=== PATIENT | male | born 1965 | race Caucasian/White ===

== ENCOUNTER 2016-05-12 10:43 | Inpatient (IN) | payer BC ==
[2016-05-06 16:38] LABS: BASOPHILS 0.3 %; BASOPHILS ABSOLUTE 0.01 10/3/uL (0.0-0.16); EOSINOPHILS 4.1 %; EOSINOPHILS ABSOLUTE 0.16 10/3/uL (0.0-0.53); HEMATOCRIT 40.6 % (40.0-51.0); HEMOGLOBIN 14.2 g/dL (13.6-17.8); IMMATURE GRANULOCYTES 0.3 %; IMMATURE GRANULOCYTES ABSOLUTE 0.01 10/3/uL (0.0-0.11); LYMPHOCYTES 17.9 %; MEAN CORPUSCULAR HEMOGLOB 33.3 pg (26.0-34.0); MEAN PLATELET VOLUME 9.8 fL (9.2-13.0); MONOCYTES 7.2 %; MONOCYTES ABSOLUTE 0.28 10/3/uL (0.21-1.20); NEUTROPHILS 70.2 %; NEUTROPHILS ABSOLUTE 2.75 10/3/uL (2.02-8.40); PLATELET COUNT 202 10/3/uL (150-400); RBC DISTRIBUTION WIDTH 13.7 % (12.0-16.0); RED CELL COUNT 4.27 10/6/uL (4.7-6.1); WHITE BLOOD CELLS 3.9 10/3/uL (4.5-10.5)
[2016-05-06 16:39] LABS: MANUAL DIFF NO %; MEAN CORPUSCULAR VOLUME 95.1 fL (80-100)
[2016-05-06 16:57] LABS: BUN (BLOOD UREA NITROGEN) 7 MG/DL (6-23); CALCIUM, SERUM 8.1 MG/DL (8.5-10.4); CHLORIDE, SERUM 106 MMOL/L (96-112); CO2 (CARBON DIOXIDE) 29 MMOL/L (24-34); CREATININE 0.77 MG/DL (0.70-1.30); GFR AFRICAN AMERICAN 124 ML/MIN (>=60); GFR NON AFRICAN AMERICAN 107 ML/MIN (>=60); GLUCOSE, SERUM 66 MG/DL (60-99); POTASSIUM, SERUM 3.9 MMOL/L (3.5-5.3); SODIUM, SERUM 143 MMOL/L (135-148)
--- NOTE | ~2016-05-12 | OP ---
Record Of Operation [facility] [address] [place]. [address] NAME: RANJITH KATHLEEN : 69 STATUS : ADM IN PAT#: [id number] AGE: 51 ADM/REG DATE : 05/12/16 MR#: [id number] REPORT SERV DATE: 05/13/16 DICTATED BY: FAY ANTONIO DATE: 05/12/16 REPORT STATUS : Draft TRANSCRIBED BY: MODEnrique DATE: 05/12/16 DATE OF PROCEDURE: 05/12/2016 PREPROCEDURE DIAGNOSIS: T3, N1, M0 adenocarcinoma of the rectum. POSTPROCEDURE DIAGNOSIS: T3, N1, M0 adenocarcinoma of the rectum. PROCEDURE: Robotic ultra-low anterior resection with hand-sewn anastomosis and ileostomy. ASSISTANTS: Mendez. DESCRIPTION OF PROCEDURE: The patient was taken to the operating room, induced under general anesthesia, placed into lithotomy. Proctoscopy was performed. The patient had stenosis of the tumor or scar was palpable 2 cm above the dentate line. For this reason, the decision was to perform a hand-sewn anastomosis. After prepping and draping, a Salinas catheter was placed. We began with a 2 cm incision, 2 cm to the right of the umbilicus using the scalpel blade. This was carried down to the level of the fascia. Anterior fascia was opened between two Kochers. The muscle fibers were spread and the posterior fascia grasped between two hemostats. They were open between the two Pickett. Then, the U-stitches 2-0 Vicryl UR6 were placed on either side and a balloon trocar was placed in through the abdomen. First the balloon was inflated. It was tightened down to size and then the abdomen was insufflated on high flow. In the right lower quadrant, 1 cm incision was made beginning first with a sharp 8 mm trocar and then converting to a 12 mm blunt trocar with an 8 inside an 8 was placed in the left lower quadrant and the left upper quadrant and then, a bladed 5 non-robotic trocar was placed in the right upper quadrant. Once these were in place then, the robot was docked. Beginning with taking the vascular pedicle, the window was made in the mesentery from the sacral promontory to the origin of the MARLON. This was dissected laterally. The ureter was easily identified. Then, the MARLON was taken at the origin including the IMV in order to allow the entire colon to be able to reach the anus. Once this was accomplished, then dissection began using cautery at the level of the sigmoid colon, which was taken down all the way up the white line of Toldt to the splenic flexure which was taken with cautery. Once this was accomplished, then total mesorectal excision was performed. Circumferentially, this was somewhat difficult due to the deep narrow pelvis of the nail. This was performed circumferentially and then a lap pad was placed posterior to the dissection above the levator muscles and posterior to the anal canal. At this point, the abdomen was desufflated. Dr. Cunha and Fabiano went below beginning with a lighted Hill Kulkarni retractor after pudendal nerve block was placed with a total of 10 mL of a 1:1 mixture of 1% lidocaine and 0.25% Sensorcaine injected locally and bilaterally and then, six blue hooks were placed circumferentially using a [place] using a lighted Hill-Kulkarni retractor dilating with a small than medium. The mucosa was released from the dentate line circumferentially. An Allis was placed on the edge as dissection of the mesorectum was performed circumferentially encountering the Ray-Leon which was brought out through the perineal wound, then circumferentially until the entire rectum plus mesorectum could be brought out the anus. Once this was accomplished up to the level of the MARLON, the mesentery was transected, taken in a clamp, cut in tie technique with 3-0 Vicryl ties. The descending colon was transected with cautery. The specimen was opened before sending it to pathology Record Of [address] [address] NAME: RANJITH KATHLEEN : 69 STATUS : ADM IN PAT#: [id number] AGE: 51 ADM/REG DATE : 05/12/16 MR#: [id number] REPORT SERV DATE: 05/13/16 DICTATED BY: FAY ANTONIO DATE: 05/12/16 REPORT STATUS : Draft TRANSCRIBED BY: MODL DATE: 05/12/16 to confirm there was indeed a 2 cm margin from the tumor and then the anastomosis was created by doing interrupted stitches in four quadrants with 2-0 Vicryl suture and then two interrupted in between each quadrant. Once this was accomplished, then the [place] was removed. The patient was cleaned and dried. The abdomen was re-insufflated using irrigation and suction. The pelvis was irrigated. There was no further bleeding. Then, the cecum with the appendix was identified following the terminal ilium approximately 14 cm until it reached the prior marked site on the abdomen was clamped with a cushion bowel clamp and dissection began making a circular incision using cautery over the prior marked ileostomy site. This was carried down to the level of the fascia. Anterior fascia was opened between two Kochers, posterior fascia opened between two hemostats. The bowel was delivered of the laparoscopic instrument to the wound. Two Whit's placed proximal and single Allis distal and it was delivered up through the wound after the laparoscopic instrument was removed. The abdomen was reinsufflated to visualize orientation and followed the distal limb to the cecum. At this point, all trocars were removed. The window was made in the mesentery of the small bowel and an ileostomy liz was placed to hold it in place. The camera, trocar, and the 12-mm trocar, the fascia was closed with 2-0 Vicryl UR6. All wounds were irrigated. The skin was closed with 4-0 Monocryl subcu followed by benzoin, Steri-Strips, and Band-Aids. Blue towels were placed over the Band-Aids as the ileostomy was matured making a curvilinear incision on the anti-mesenteric border, then interrupted 3- 0 Vicryl sutures in four quadrants taking care to Lela the ileostomy and then interrupted in between each quadrant, full-thickness bowel, and dermis. These were tied. The appliance was cut to size and applied. He tolerated the procedure well. I am going to apply a modifier 22, not only with this robotic and included mobilization of the splenic flexure. It included a hand-sewn anastomosis. It took a total of six hours. KIMI Fay Antonio M.D. / [id number] CC: Justin Barrientos M.D. Davey B. Daniel, M.D. Vijaykurmar Patel, M.D.
--- NOTE | ~2016-05-12 | HP ---
History And Physical [facility] [address] [place]. [address] NAME: RANJITH KATHLEEN RENEE : 69 STATUS : ADM IN [facility]#: [id number] AGE: 51 ADM/REG DATE : 05/12/16 MR#: [id number] REPORT SERV DATE: 05/13/16 DICTATED BY: FAY ANTONIO DATE: 05/12/16 REPORT STATUS : Draft TRANSCRIBED BY: MODEnrique DATE: 05/12/16 DATE OF ADMISSION: 05/12/2016 REASON FOR ADMISSION: Ultra-low anterior resection with hand-sewn anastomosis and ileostomy for rectal cancer. PAST MEDICAL HISTORY: T3 N1 M0 adenocarcinoma of the rectum. PAST SURGICAL HISTORY: Cardiac ablation and right hip replacement. SOCIAL HISTORY: Does not smoke or drink. His is a nurse here at [employer]. FAMILY HISTORY: COPD, diabetes, and myocardial infarction. ALLERGIES: NONE. MEDICATIONS: None. REVIEW OF SYSTEMS: As stated in the HPI, otherwise negative. PHYSICAL EXAMINATION: VITAL SIGNS: 66, 112/62, and BMI 25. GENERAL: Alert, thin, white male, no acute distress. HEENT: Normocephalic, atraumatic. EOMI. PERRLA. Oropharynx is clear. NECK: Supple. No lymphadenopathy. Clear to auscultation bilaterally. HEART: Regular rate and rhythm. ABDOMEN: Flat. RECTAL: Digital rectal exam, I am able to palpate the lesion to the left of the posterior midline. EXTREMITIES: Moves all extremities well. NEUROLOGIC: Cranial nerves II through XII intact. DERMATOLOGIC: No rashes. ASSESSMENT AND PLAN: A 51-year-old male with a T3 N1 M0 adenocarcinoma of the rectum, status post neoadjuvant therapy, and ready now for low anterior resection. I have discussed risks, benefits, and alternatives. He understands and is willing to proceed. CHANG/CADE Fay Antonio M.D. / [id number] History And Physical [address] [place] [address] NAME: FRANNIEROCKZAHIRA DURAN : 69 STATUS : ADM IN PAT#: [id number] AGE: 51 ADM/REG DATE : 05/12/16 MR#: [id number] REPORT SERV DATE: 05/13/16 DICTATED BY: FAY ANTONIO DATE: 05/12/16 REPORT STATUS : Draft TRANSCRIBED BY: MODL DATE: 05/12/16 CC: Fay Antonio M.D.
--- NOTE | ~2016-05-12 | DS ---
Discharge Summary [facility] [address] [place]. [address] NAME: RANJITH KATHLEEN : 69 STATUS : DIS IN PAT#: [id number] AGE: 51 ADM/REG DATE : 05/12/16 MR#: [id number] REPORT SERV DATE: 05/22/16 DICTATED BY: FAY ANTONIO DATE: 05/22/16 REPORT STATUS : Draft TRANSCRIBED BY: CADE DATE: 05/22/16 Data Collection from hospitalization DISCHARGE DIAGNOSIS: T3 N1 M0 adenocarcinoma of the rectum. CONSULTATIONS: None. PROCEDURES PERFORMED: Robotic ultra-low anterior resection with hand-sewn anastomosis and ileostomy on 05/12/2016. PATHOLOGY: Rectum, low anterior resection - focal residual adenocarcinoma, status post neoadjuvant therapy site - rectum, size (maximal tumor dimension) - largest microscopic focus measures 3 mm. Histologic grade - moderately differentiated. Local extent - T3 tumor invades through the muscularis propria. Pericolorectal tissues, lymphatic (small vessel) invasion - not identified. Venous (large vessel) invasion - not identified. Status of margins - negative. Residual tumor is 2 cm from the distal margins. Lymph nodes - 0/14 nodes are involved (0/14). Treatment effect - moderate response (grade 1 minimal residual cancer). Tumor deposits - not identified. Perineural invasion - not identified. Histologic features of microsatellite instability - not identified. Immunohistochemistry for mismatch repair (MMR) protein - perforated on previous biopsy. MSH2/MSH6/MLH1/TMS2 - normal expression (positive nuclear staining). CDX-2 immunostain - not applicable - chemotherapy already received. Macroscopic intactness of mesorectum - complete. Other findings - none. Pathological stage - yPT3, yTN0. MEDICATIONS: Aspirin 325 mg every six hours as needed and Piggott 7.5/325 one to two tablets every four to six hours as needed. CONDITION AT DISCHARGE: Stable. DISPOSITION: The patient was discharged home to be followed by home health care on a soft diet with activities as instructed. He would follow up with me two weeks following discharge. HOSPITAL COURSE: This is a 51-year-old man who has T3 N1 M0 adenocarcinoma of the rectum. Treatment options were discussed and it was elected to proceed with surgical intervention. He was admitted to the hospital at this time for further evaluation and treatment. Upon admission, he was taken to the operating room where he underwent the above-mentioned procedure. He tolerated this well, and there were no complications. On postop day #1, Salinas catheter was replaced due to pelvic dissection. His incisions were clean, dry, and intact. We encouraged him to ambulate. On 05/14/2016, the Salinas catheter was removed. He had no urinary retention. 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 He was changed to oral pain medications. Over the next couple of days, his nausea and vomiting decreased. His ileostomy output increased. He remained afebrile. IV hydration continued. Due to the decreased urine output, electrolytes were going to be checked for imbalance. Imodium was started. Discharge planning was performed. On 05/16/2016, ileostomy output had increased. Discharge instructions were given. Due to his improved and stable condition, he was discharged home to be followed by home health care with the above-stated instructions. Discharge Summary [place] [id number] [facility] [place]. [address] NAME: RANJITH KATHLEEN : 69 STATUS : DIS IN [facility]#: [id number] AGE: 51 ADM/REG DATE : 05/12/16 MR#: [id number] REPORT SERV DATE: 05/22/16 DICTATED BY: FAY ANTONIO DATE: 05/22/16 REPORT STATUS : Draft TRANSCRIBED BY: CDAE DATE: 05/22/16 Information collected by: Serene Wayne I submit the above information as my discharge summary. JAE/CADE Fay Antonio M.D. / [id number] CC: Justin Barrientos M.D.
[~2016-05-12 10:43] MED LIST: ASA5GR PO; EFFEX75 PO
[2016-05-12 20:52] LABS: HEMOGLOBIN 11.9 g/dL (13.6-17.8)
[2016-05-12 20:53] LABS: HEMATOCRIT 33.7 % (40.0-51.0)
[2016-05-13 06:52] LABS: BASOPHILS 0 %; EOSINOPHILS 0 %; HEMATOCRIT 35.5 % (40.0-51.0); IMMATURE GRANULOCYTES 0.1 %; IMMATURE GRANULOCYTES ABSOLUTE 0.01 10/3/uL (0.0-0.11); LYMPHOCYTES 8.2 %; LYMPHOCYTES ABSOLUTE 0.91 10/3/uL (0.67-4.30); MEAN CORPUS HGB CONC 33.8 g/dL (32.0-36.0); MEAN CORPUSCULAR HEMOGLOB 32.2 pg (26.0-34.0); MEAN CORPUSCULAR VOLUME 95.2 fL (80-100); MEAN PLATELET VOLUME 9.7 fL (9.2-13.0); MONOCYTES 2.1 %; MONOCYTES ABSOLUTE 0.23 10/3/uL (0.21-1.20); NEUTROPHILS 89.6 %; NEUTROPHILS ABSOLUTE 10.01 10/3/uL (2.02-8.40); PLATELET COUNT 205 10/3/uL (150-400); RBC DISTRIBUTION WIDTH 13.5 % (12.0-16.0); RED CELL COUNT 3.73 10/6/uL (4.7-6.1)
[2016-05-13 06:53] LABS: MANUAL DIFF NO %; WHITE BLOOD CELLS 11.2 10/3/uL (4.5-10.5)
[2016-05-13 07:07] LABS: BUN (BLOOD UREA NITROGEN) 8 MG/DL (6-23); CALCIUM, SERUM 8.3 MG/DL (8.5-10.4); CHLORIDE, SERUM 109 MMOL/L (96-112); CO2 (CARBON DIOXIDE) 25 MMOL/L (24-34); CREATININE 0.92 MG/DL (0.70-1.30); GFR AFRICAN AMERICAN 113 ML/MIN (>=60); GFR NON AFRICAN AMERICAN 97 ML/MIN (>=60); POTASSIUM, SERUM 3.8 MMOL/L (3.5-5.3); SODIUM, SERUM 145 MMOL/L (135-148)
[2016-05-13 07:08] LABS: GLUCOSE, SERUM 145 MG/DL (60-99)
[2016-05-14 07:04] LABS: BASOPHILS 0 %; EOSINOPHILS 0.1 %; EOSINOPHILS ABSOLUTE 0.01 10/3/uL (0.0-0.53); HEMATOCRIT 37.9 % (40.0-51.0); HEMOGLOBIN 12.7 g/dL (13.6-17.8); IMMATURE GRANULOCYTES 0.2 %; IMMATURE GRANULOCYTES ABSOLUTE 0.02 10/3/uL (0.0-0.11); LYMPHOCYTES 4.8 %; LYMPHOCYTES ABSOLUTE 0.48 10/3/uL (0.67-4.30); MEAN CORPUS HGB CONC 33.5 g/dL (32.0-36.0); MEAN PLATELET VOLUME 9.6 fL (9.2-13.0); MONOCYTES 4.9 %; MONOCYTES ABSOLUTE 0.49 10/3/uL (0.21-1.20); NEUTROPHILS ABSOLUTE 8.97 10/3/uL (2.02-8.40); PLATELET COUNT 173 10/3/uL (150-400); RBC DISTRIBUTION WIDTH 13.7 % (12.0-16.0); RED CELL COUNT 3.85 10/6/uL (4.7-6.1)
[2016-05-14 07:05] LABS: MANUAL DIFF NO %; MEAN CORPUSCULAR VOLUME 98.4 fL (80-100)
[2016-05-14 07:18] LABS: BUN (BLOOD UREA NITROGEN) 6 MG/DL (6-23); CALCIUM, SERUM 8.3 MG/DL (8.5-10.4); CHLORIDE, SERUM 108 MMOL/L (96-112); CO2 (CARBON DIOXIDE) 27 MMOL/L (24-34); CREATININE 0.82 MG/DL (0.70-1.30); GFR AFRICAN AMERICAN 120 ML/MIN (>=60); GFR NON AFRICAN AMERICAN 104 ML/MIN (>=60); GLUCOSE, SERUM 139 MG/DL (60-99); POTASSIUM, SERUM 4.2 MMOL/L (3.5-5.3); SODIUM, SERUM 143 MMOL/L (135-148)
[2016-05-14] MEDS ORDERED: NORCO1 TA2 PO (09:27)
[2016-05-15 07:37] LABS: BUN (BLOOD UREA NITROGEN) 6 MG/DL (6-23); CALCIUM, SERUM 8.2 MG/DL (8.5-10.4); CHLORIDE, SERUM 105 MMOL/L (96-112); CO2 (CARBON DIOXIDE) 26 MMOL/L (24-34); CREATININE 0.71 MG/DL (0.70-1.30); GFR AFRICAN AMERICAN 128 ML/MIN (>=60); GFR NON AFRICAN AMERICAN 110 ML/MIN (>=60); GLUCOSE, SERUM 118 MG/DL (60-99); POTASSIUM, SERUM 3.9 MMOL/L (3.5-5.3); SODIUM, SERUM 140 MMOL/L (135-148)
== END 2016-05-16 17:16 | disposition home health service (06) | DRG 331 ==
LOC: SDC/OF 10:43 → PACU 19:56 → 5SO 21:23
PROVIDERS: Surgery
PROC: 0DBP0ZZ Excision of Rectum, Open Approach (ICD-10-PCS; principal; 2016-05-12 12:00)
PROC: 0D1B0Z4 Bypass Ileum to Cutaneous, Open Approach (ICD-10-PCS; 2016-05-12 12:00)
DX: C20 Malignant neoplasm of rectum (principal)
CPT/HCPCS: 36415; 80048; 85014; 85018; 85025; 86850; 86900; 86901; 88309; 93005; A9270-GY; C9113; J0690; J2250; J2270; J2370; J2405; J2550; J2710; J2795; J3010; P9045

== ENCOUNTER 2016-07-23 11:54 | Inpatient (IN) | payer BC ==
[2016-07-17 10:01] LABS: BASOPHILS 0.6 %; BASOPHILS ABSOLUTE 0.02 10/3/uL (0.0-0.16); BUN (BLOOD UREA NITROGEN) 9 MG/DL (6-23); CALCIUM, SERUM 8.8 MG/DL (8.5-10.4); CHLORIDE, SERUM 109 MMOL/L (96-112); CO2 (CARBON DIOXIDE) 29 MMOL/L (24-34); CREATININE 0.79 MG/DL (0.70-1.30); EOSINOPHILS 4.7 %; EOSINOPHILS ABSOLUTE 0.17 10/3/uL (0.0-0.53); GFR AFRICAN AMERICAN 122 ML/MIN (>=60); GFR NON AFRICAN AMERICAN 105 ML/MIN (>=60); GLUCOSE, SERUM 82 MG/DL (60-99); HEMATOCRIT 41.2 % (40.0-51.0); HEMOGLOBIN 14.1 g/dL (13.6-17.8); IMMATURE GRANULOCYTES 0.8 %; IMMATURE GRANULOCYTES ABSOLUTE 0.03 10/3/uL (0.0-0.11); LYMPHOCYTES 15.4 %; LYMPHOCYTES ABSOLUTE 0.56 10/3/uL (0.67-4.30); MEAN CORPUS HGB CONC 34.2 g/dL (32.0-36.0); MEAN CORPUSCULAR HEMOGLOB 31.5 pg (26.0-34.0); MEAN PLATELET VOLUME 9.8 fL (9.2-13.0); MONOCYTES 9.9 %; MONOCYTES ABSOLUTE 0.36 10/3/uL (0.21-1.20); NEUTROPHILS 68.6 %; NEUTROPHILS ABSOLUTE 2.49 10/3/uL (2.02-8.40); PLATELET COUNT 206 10/3/uL (150-400); RBC DISTRIBUTION WIDTH 12.6 % (12.0-16.0); RED CELL COUNT 4.48 10/6/uL (4.7-6.1); SODIUM, SERUM 143 MMOL/L (135-148)
[2016-07-17 10:04] LABS: MANUAL DIFF NO %; WHITE BLOOD CELLS 3.6 10/3/uL (4.5-10.5)
--- NOTE | ~2016-07-23 | HP ---
History And Physical [address] [place]. [address] NAME: RANJITH KATHLEEN : 69 STATUS : ADM IN PAT#: [id number] AGE: 51 ADM/REG DATE : 07/23/16 MR#: [id number] REPORT SERV DATE: 07/23/16 DICTATED BY: FAY HOPKINS DATE: 07/23/16 REPORT STATUS : Draft TRANSCRIBED BY: MODEnrique DATE: 07/23/16 DATE OF ADMISSION: 07/23/2016 REASON FOR ADMISSION: Ileostomy reversal. PAST MEDICAL HISTORY: Undesired ileostomy, rectal cancer, unilateral inguinal hernia, and rectal bleeding. PAST SURGICAL HISTORY: Cardiac ablation, right hip replacement, and robotic low anterior resection on 05/12/2016. SOCIAL HISTORY: Does not smoke or drink. FAMILY HISTORY: Significant for COPD, diabetes, and myocardial infarction. ALLERGIES: NONE. MEDICATIONS: At this time none. REVIEW OF SYSTEMS: As stated in the HPI, otherwise, negative. PHYSICAL EXAMINATION: VITAL SIGNS: 62, 116/77, BMI of 24. GENERAL: Alert thin white male in no acute distress. HEENT: Normocephalic, atraumatic. EOMI. PERRLA. Oropharynx is clear. NECK: Supple. No lymphadenopathy. Clear to auscultation bilaterally. HEART: Regular rate and rhythm. ABDOMEN: Soft, flat with the appropriate scars in the ileostomy present in the right lower quadrant. EXTREMITIES: Moves all extremities well. Cranial nerves 2-12 intact. No rashes. ASSESSMENT AND PLAN: A 51-year-old male with undesired ileostomy. Plan is for ileostomy reversal. The risks, benefits, and alternatives were discussed. He understands and is willing to proceed. CHANG/CADE Fay Hopkins M.D. / [id number] CC: History And Physical [address] [place]. [address] NAME: RANJITH KATHLEEN : 69 STATUS : ADM IN PAT#: [id number] AGE: 51 ADM/REG DATE : 07/23/16 MR#: [id number] REPORT SERV DATE: 07/23/16 DICTATED BY: FAY HOPKINS DATE: 07/23/16 REPORT STATUS : Draft TRANSCRIBED BY: MODL DATE: 07/23/16 Fay Hopkins M.D.
--- NOTE | ~2016-07-23 | OP ---
Record Of Operation [facility] [address] [place]. [address] NAME: RANJITH KATHLEEN : 69 STATUS : ADM IN PAT#: [id number] AGE: 51 ADM/REG DATE : 07/23/16 MR#: [id number] REPORT SERV DATE: 07/23/16 DICTATED BY: FAY ANTONIO DATE: 07/23/16 REPORT STATUS : Draft TRANSCRIBED BY: CADE DATE: 07/23/16 DATE OF PROCEDURE: 07/23/2016 PREPROCEDURE DIAGNOSIS: Undesired ileostomy. POSTPROCEDURE DIAGNOSIS: Undesired ileostomy. PRECINCT POLICE LIEUTENANT: Seth. PROCEDURE: Ileostomy reversal. PROCEDURE IN DETAIL: The patient was taken to the operating room, induced under general anesthesia. Salinas catheter was placed. Ileostomy was closed with a pursestring suture and then the patient was prepped and draped in the usual sterile fashion. An elliptical incision was made at the level of the mucocutaneous border using the scalpel blade. This was carried down to the level of fascia using cautery. The stoma was mobilized circumferentially using Metzenbaum scissors until the two limbs were completely mobile. Green towels were placed on the abdomen. The two limbs of the ileostomy were transected at the ileostomy spur making windows in the mesentery using a single blue load of the Endo-PHAN. Then, the mesentery was taken with a clamp, cut, and tie technique. 3-0 Vicryl ties. Ileostomy spur was passed off the table and sent to pathology. The new anastomosis was created by making enterotomies on the antimesenteric border of the two limbs. Limb of the Endo PHAN placed down either side firing on the antimesenteric border and then the enterotomy was closed taking great care not to juxtapose staple lines using four Allis clamps followed by a TX60. The remnant was removed with curved Veronica scissors and then any intersecting staple lines were reinforced using 3-0 Vicryl suture including a crotch stitch. At this point, all dirty instruments, green towels, and gloves were changed. The anastomosis was placed into the abdomen. The fascia closed with a running PDS proximal to distal. Wound was irrigated. Teja's fascia was closed in a running fashion and then the skin edges were closed with interrupted 3-0 Vicryl dermal stitches with 1 cm gaps. Betadine-soaked Telfa was placed in the gaps followed by two 4x4s. He tolerated the procedure well. CHANG/CADE Fay Antonio M.D. / [id number] CC: Justin Barrientos M.D. Davey B. Daniel, M.D.
[~2016-07-23 11:54] MED LIST changes: +NORCO1 TA2 PO
[2016-07-23 15:42] LABS: HEMATOCRIT 37.9 % (40.0-51.0); HEMOGLOBIN 12.9 g/dL (13.6-17.8)
[2016-07-24 06:24] LABS: BASOPHILS 0 %; EOSINOPHILS 0 %; HEMATOCRIT 36.3 % (40.0-51.0); HEMOGLOBIN 12.3 g/dL (13.6-17.8); IMMATURE GRANULOCYTES 0.2 %; IMMATURE GRANULOCYTES ABSOLUTE 0.02 10/3/uL (0.0-0.11); LYMPHOCYTES ABSOLUTE 0.68 10/3/uL (0.67-4.30); MEAN CORPUS HGB CONC 33.9 g/dL (32.0-36.0); MEAN CORPUSCULAR HEMOGLOB 31.3 pg (26.0-34.0); MEAN CORPUSCULAR VOLUME 92.4 fL (80-100); MEAN PLATELET VOLUME 9.6 fL (9.2-13.0); MONOCYTES ABSOLUTE 0.58 10/3/uL (0.21-1.20); NEUTROPHILS 86.8 %; NEUTROPHILS ABSOLUTE 8.39 10/3/uL (2.02-8.40); PLATELET COUNT 180 10/3/uL (150-400); RBC DISTRIBUTION WIDTH 12.7 % (12.0-16.0); RED CELL COUNT 3.93 10/6/uL (4.7-6.1)
[2016-07-24 06:28] LABS: MANUAL DIFF NO %; WHITE BLOOD CELLS 9.7 10/3/uL (4.5-10.5)
[2016-07-24 06:31] LABS: BUN (BLOOD UREA NITROGEN) 9 MG/DL (6-23); CHLORIDE, SERUM 108 MMOL/L (96-112); CO2 (CARBON DIOXIDE) 28 MMOL/L (24-34); CREATININE 0.82 MG/DL (0.70-1.30); GFR AFRICAN AMERICAN 120 ML/MIN (>=60); GFR NON AFRICAN AMERICAN 104 ML/MIN (>=60); POTASSIUM, SERUM 4.1 MMOL/L (3.5-5.3); SODIUM, SERUM 142 MMOL/L (135-148)
[2016-07-24 06:35] LABS: GLUCOSE, SERUM 138 MG/DL (60-99)
[2016-07-25] MEDS ORDERED: NORCO1 TA2 PO (09:28)
== END 2016-07-25 10:46 | disposition home or self-care (01) | DRG 331 ==
LOC: SDC/OF 11:54 → PACU 15:03 → 5SO 15:49
PROVIDERS: Surgery
PROC: 0DBB0ZZ Excision of Ileum, Open Approach (ICD-10-PCS; principal; 2016-07-23 13:15)
DX: Z43.2 Encounter for attention to ileostomy (principal); K40.90 Unilateral inguinal hernia, without obstruction or gangrene, not specified as recurrent; Z96.641 Presence of right artificial hip joint; Z85.048 Personal history of other malignant neoplasm of rectum, rectosigmoid junction, and anus; Z90.49 Acquired absence of other specified parts of digestive tract; Z82.49 Family history of ischemic heart disease and other diseases of the circulatory system; Z83.3 Family history of diabetes mellitus; Z82.5 Family history of asthma and other chronic lower respiratory diseases
CPT/HCPCS: 80048; 85014; 85018; 85025; 88304; 93005; A9270-GY; J0690; J1885; J2250; J2270; J2405; J2710; J2795; J3010